=== PATIENT | female | born 1985 | race Caucasian/White ===

== ENCOUNTER 2019-02-06 09:10 | Emergency (ER) | payer OTHER ==
[~2019-02-06] VITALS: Ht 165.1 cm; Wt 71.2 kg
[~2019-02-06 09:10] MED LIST: ACEBUTCAFT PO; ACET500 PO; ALEVE PRN; APRI; BCPs; BIRTH CONTROL; BUSP10 PO; CIPR250 PO; CLOM50A PO; CLON.5 PO; CYCL10 PO; Cleocin HCl300 MG PO; DIPATR PO; DIPH25 PO; DIVA250EC PO; DOXY100 PO; Doxycycline Hy100 MG PO; Duragesic TOP; EPIDRIN; ESCI10 PO; ESOM20 PO; FLUSAL2505; FOLI1 PO; GUAPHELA PO; HYDACE5; HYDACE5 PO; HYDPAM25 PO; HYDR1TAB94 PO; IBUP600 PO; IBUP800 PO; INDO50 PO; IRON150C PO; KETO10 PO; Kristalose20 GM PO; LAVAP17G PO; LEVFLO500 PO; LORA1 PO; MARINA; MELA3 PO; META800 PO; METERG.2 PO; METO10 PO; METPRE4DP PO; METR500 PO; MULVITMINE PO; NAPR500 PO; NORCO; NORT25 PO; Naprosyn375 MG PO; OMEP20ER PO; ONDA4ODT MM; ONDA8ODT MM; OXYACE5T PO; OXYACE7.5T PO; PANT40 PO; PHENA200 PO; PRED20; PROCODE120 PO; PROM25 PO; PROM25S PR; PROP60 PO; PYRI100 PO; RANI150 PO; RXCYCL10 PO; RXHYDACE PO; RXOXYACE PO; RXPHEN200 PO; RXPROCODSY PO; RXTRAM50 PO; SUCR1SU PO; TRAM50 PO; TRAZ50 PO; [UNRECOGNIZED DRUG - OTHER]
[2019-02-06] MEDS ORDERED: Vibramycin100 MG PO (11:30)
[2019-02-06] MEDS ORDERED: NAPR550 PO (11:30)
== END 2019-02-06 11:37 | disposition home or self-care (01) ==
LOC: ER 09:10
DX: L02.411 Cutaneous abscess of right axilla (principal); F32.9 Major depressive disorder, single episode, unspecified; F41.9 Anxiety disorder, unspecified; F17.210 Nicotine dependence, cigarettes, uncomplicated; Z88.0 Allergy status to penicillin; Z88.8 Allergy status to other drugs, medicaments and biological substances; Z91.013 Allergy to seafood; Z79.899 Other long term (current) drug therapy
CPT/HCPCS: 99282

== ENCOUNTER 2020-02-12 11:48 | Observation (INO) | payer OTHER ==
[~2020-02-12] VITALS: Ht 165.1 cm; Wt 72.6 kg
[~2020-02-12 11:48] MED LIST changes: +NAPR550 PO; +Vibramycin100 MG PO
[2020-02-12 15:14] LABS: BASOPHILS ABSOLUTE AUTO 0.06 K/mm3 (0.00-0.23); BASOPHILS PERCENT AUTO 1 % (0-2); EOSINOPHILS ABSOLUTE AUTO 0.06 K/mm3 (0.00-0.68); EOSINOPHILS PERCENT AUTO 1 % (0-6); Hematocrit 40.8 % (33.0-51.0); Hemoglobin 13.3 g/dL (11.5-16.0); IMMATURE GRAN ABSOLUTE AUTO 0.03 K/mm3 (0.00-0.10); IMMATURE GRAN PERCENT AUTO 0 % (0-1); LYMPHOCYTES ABSOLUTE AUTO 2.49 K/mm3 (0.84-5.20); LYMPHOCYTES PERCENT AUTO 19 % (21-46); MONOCYTES ABSOLUTE AUTO 0.75 K/mm3 (0.16-1.47); MONOCYTES PERCENT AUTO 6 % (4-13); Mean Corpuscular HGB Conc 32.6 g/dL (31.5-36.5); Mean Corpuscular Volume 89 fL (80-100); Mean Platelet Volume 9.5 fL (9.1-12.4); NEUTROPHILS ABSOLUTE AUTO 9.51 K/mm3 (1.96-9.15); NEUTROPHILS PERCENT AUTO 74 % (41-73); Platelet Count 394 K/mm3 (150-400); RDW Coefficient Variation 12.2 % (11.7-14.2); RDW Standard Deviation 39.6 fL (35.1-46.3); Red Blood Cell Count 4.59 M/mm3 (3.80-5.20)
--- NOTE | 2020-02-12 16:54 | NUR ---
ADMIT NEW ER ADMIT WITH LEFT BREAST ABSCESS. LEFT BREAST IS RED AND SWOLLEN. PAINFUL WITH PALPATION. MEDICATED IN ER WITH 1 MG DILAUDID POST ULTRA SOUND. PT ALERT AND ORIENTED, BUT DOES APPEAR TO BE ANXIOUS WITH BEING IN THE HOSPITAL. INDEP IN ROOM AND DID VOID UPON ARRIVAL. NPO. SURGICAL PACKET COMPLETE. ORIENTED TO ROOM AND CALL LIGHT. PT PLANNING TO GO TO OR TONIGHT.
[2020-02-12 17:16] LABS: Influenza A, PCR Negative (NEGATIVE); Influenza B, PCR Negative (NEGATIVE); Resp Syncytial Virus, PCR Negative (NEGATIVE); SARS-Cov-2 (COVID-19) PCR, MMC Negative (NEGATIVE)
--- NOTE | 2020-02-12 17:37 | NUR ---
PT TO DAY SURGERY AT THIS TIME.
--- NOTE | 2020-02-12 17:48 | NUR ---
1740- HERE FOR PRE OP. PAS SLEEVES ON. IVF STARTED.
--- NOTE | 2020-02-13 04:49 | NUR ---
SHIFT SUMMARY: EVELIN IS A&OX4. SHE STATES THAT SHE HAS AN INCREASED HR ANYTIME SHE IS UPSET AND THAT BEING IN THE HOSPITAL CAUSES QUITE A BIT OF ANXIETY FOR HER. OTHERWISE, VSS. BREAST BINDER IN PLACE, GAUZE COVERING I&D SITE AND MICHELL DRAIN. THE GAUZE WAS CHANGED TWICE THIS SHIFT. SHE REPORTS ADEQUATE PAIN CONTROL WITH THE NORCO AND DILAUDID. SHE INDEPENDENT IN THE ROOM, USES THE CALL LIGHT APPROPRIATELY. SHE IS URINATING WITHOUT DIFFICULTY. SHE IS TOLERATING PO INTAKE WELL. SHE IS LYING IN BED WITH HER CALL LIGHT IN REACH. WILL REPORT TO DAY SHIFT RN.
[2020-02-13] MEDS ORDERED: HYDR1TAB94 PO (08:32)
[2020-02-13] MEDS ORDERED: CEPH500 PO (08:33)
--- NOTE | 2020-02-13 12:06 | NUR ---
DISCHARGE: PACKET PRINTED AND PT EDUCATED. DRESSING AT L BREAST CHANGED, MODERATE AMOUNT OF SS DRAINAGE. DRESSED WITH GAUZE AND NEW BREAST BINDER PLACED. PT GIVEN SCRIPTS. LEFT UNIT VIA WHEELCHAIR AT ABOUT 0910
== END 2020-02-13 09:10 | disposition home or self-care (01) ==
LOC: ER 11:48 → SURS 11:49
PROVIDERS: Emergency Medicine; ADMIT Surgery
DX: N61.1 Abscess of the breast and nipple (principal); F17.210 Nicotine dependence, cigarettes, uncomplicated; G43.909 Migraine, unspecified, not intractable, without status migrainosus; G89.29 Other chronic pain; M54.9 Dorsalgia, unspecified; F32.9 Major depressive disorder, single episode, unspecified; F41.9 Anxiety disorder, unspecified; Z90.49 Acquired absence of other specified parts of digestive tract; Z79.51 Long term (current) use of inhaled steroids; Z79.899 Other long term (current) drug therapy; Z88.0 Allergy status to penicillin; Z88.8 Allergy status to other drugs, medicaments and biological substances; Z88.5 Allergy status to narcotic agent; Z91.041 Radiographic dye allergy status; Z91.013 Allergy to seafood; Z98.51 Tubal ligation status; Z20.828 Contact with and (suspected) exposure to other viral communicable diseases; Z23 Encounter for immunization
CPT/HCPCS: 0241U; 36415; 76642; 85025; 87070; 87075; 87077; 87147; 87186; 87205; 96365; 96375; 96376; 99284-25; A9270-GY; G0378; J0690; J1100; J1170; J1885; J2250; J2405; J2704; J3010; J7120

== ENCOUNTER → 2023-03-03 | Outpatient (CLI) | payer OTHER ==
[~2023-03-03] MED LIST changes: +BISA5EC PO; +CEPH500 PO; +MIRALAX17 GM PO
[2023-03-03 12:04] LABS: BASOPHILS ABSOLUTE AUTO 0.05 K/mm3 (0.00-0.23); BASOPHILS PERCENT AUTO 1 % (0-2); EOSINOPHILS ABSOLUTE AUTO 0.11 K/mm3 (0.00-0.68); EOSINOPHILS PERCENT AUTO 2 % (0-6); Hematocrit 34.7 % (33.0-51.0); Hemoglobin 11.8 g/dL (11.5-16.0); IMMATURE GRAN ABSOLUTE AUTO 0.02 K/mm3 (0.00-0.10); IMMATURE GRAN PERCENT AUTO 0 % (0-1); LYMPHOCYTES ABSOLUTE AUTO 2.27 K/mm3 (0.84-5.20); LYMPHOCYTES PERCENT AUTO 31 % (21-46); MONOCYTES ABSOLUTE AUTO 0.44 K/mm3 (0.16-1.47); MONOCYTES PERCENT AUTO 6 % (4-13); Mean Corpuscular HGB 29.4 pg (26.0-34.0); Mean Corpuscular Volume 87 fL (80-100); Mean Platelet Volume 9.3 fL (9.1-12.4); NEUTROPHILS ABSOLUTE AUTO 4.41 K/mm3 (1.96-9.15); NEUTROPHILS PERCENT AUTO 60 % (41-73); Platelet Count 310 K/mm3 (150-400); RDW Coefficient Variation 12.7 % (11.7-14.2); RDW Standard Deviation 39.7 fL (35.1-46.3); Red Blood Cell Count 4.01 M/mm3 (3.80-5.20)
[2023-03-03 12:54] LABS: Albumin, Blood 3.4 g/dL (3.4-5.0); Bilirubin, Total 0.3 mg/dL (0.1-1.0); Bun/Creatinine Ratio 18.3 (12.0-20.0); Calcium, Blood 8.5 mg/dL (8.5-10.1); Creatinine, Blood 0.6 mg/dL (0.40-1.00); Globulin, Blood 3.3 g/dL (2.2-4.0); Potassium, Blood 3.9 mmol/L (3.5-5.5); Total Protein, Blood 6.7 g/dL (6.4-8.2)
== END ==
LOC: LAB 12:00 → LAB SHORT 12:00
PROVIDERS: Chiropractor
DX: R07.89 Other chest pain (principal); R10.13 Epigastric pain
CPT/HCPCS: 80053; 83690; 84484; 85025

== ENCOUNTER 2023-12-08 20:24 | Emergency (ER) | payer OTHER ==
[~2023-12-08] VITALS: Ht 170.2 cm; Wt 72.6 kg
[2023-12-08 21:22] LABS: BASOPHILS ABSOLUTE AUTO 0.05 K/mm3 (0.00-0.23); BASOPHILS PERCENT AUTO 0 % (0-2); EOSINOPHILS ABSOLUTE AUTO 0.14 K/mm3 (0.00-0.68); EOSINOPHILS PERCENT AUTO 1 % (0-6); Hematocrit 42.8 % (33.0-51.0); Hemoglobin 14.4 g/dL (11.5-16.0); IMMATURE GRAN ABSOLUTE AUTO 0.03 K/mm3 (0.00-0.10); IMMATURE GRAN PERCENT AUTO 0 % (0-1); LYMPHOCYTES PERCENT AUTO 19 % (21-46); MONOCYTES ABSOLUTE AUTO 0.67 K/mm3 (0.16-1.47); MONOCYTES PERCENT AUTO 6 % (4-13); Mean Corpuscular HGB 29.3 pg (26.0-34.0); Mean Corpuscular HGB Conc 33.6 g/dL (31.5-36.5); Mean Corpuscular Volume 87 fL (80-100); Mean Platelet Volume 9.3 fL (9.1-12.4); NEUTROPHILS ABSOLUTE AUTO 8.35 K/mm3 (1.96-9.15); NEUTROPHILS PERCENT AUTO 74 % (41-73); Platelet Count 355 K/mm3 (150-400); RDW Coefficient Variation 12.7 % (11.7-14.2); RDW Standard Deviation 40.4 fL (35.1-46.3); Red Blood Cell Count 4.91 M/mm3 (3.80-5.20); White Blood Cell Count 11.34 K/mm3 (4.00-11.30)
[2023-12-08 21:41] LABS: Albumin, Blood 3.7 g/dL (3.4-5.0); Albumin/Globulin Ratio 0.9 (0.8-1.8); Bilirubin, Total 0.2 mg/dL (0.1-1.0); Bun/Creatinine Ratio 15.2 (12.0-20.0); Creatinine, Blood 0.66 mg/dL (0.40-1.00); Globulin, Blood 3.9 g/dL (2.2-4.0); Total Protein, Blood 7.6 g/dL (6.4-8.2)
[2023-12-08] MEDS ORDERED: NS 1,000 ML IV SCH (22:55)
[2023-12-08] MEDS ORDERED: DiphenhydrAMINE HCl 50 MG/ML 1ML Vial IV ONE (22:55)
[2023-12-08] MEDS ORDERED: Prochlorperazine Edisylate 10 mg Vial IV ONE (22:55)
[2023-12-08 23:49] LABS: Source, Urine Clean Catch
[2023-12-09 00:22] LABS: Appearance, Urine Clear (Clear); Bilirubin, Urine Neg (Neg); Blood, Urine Neg (Neg); Color, Urine Yellow (P-Yellow); Glucose Qualitative, Urine Neg (Neg); Ketones, Urine 1+ (Neg); Leukocyte Esterase, Urine Neg (Neg); Nitrite, Urine Neg (Neg); Protein, Urine Neg (Neg); Specific Gravity, Urine 1.015 (1.003-1.022); Urobilinogen, Urine NORM (Normal); pH, Urine 6.5 (5.0-8.0)
[2023-12-09 01:30] VITALS: BP 108/65
== END 2023-12-09 02:10 | disposition home or self-care (01) ==
LOC: ER 20:24
PROVIDERS: Student in an Organized Health Care Education/Training Program
DX: K52.9 Noninfective gastroenteritis and colitis, unspecified (principal); G43.909 Migraine, unspecified, not intractable, without status migrainosus; F17.210 Nicotine dependence, cigarettes, uncomplicated; Z79.899 Other long term (current) drug therapy; Z88.0 Allergy status to penicillin; Z88.6 Allergy status to analgesic agent; Z88.5 Allergy status to narcotic agent; Z91.013 Allergy to seafood
CPT/HCPCS: 74177; 80053; 81003; 83690; 84703; 85025; 96374-59; 96375; 99284-25; J0780; J1200; J7030; Q9967